=== PATIENT | male | born 1980 | race African-American/Black ===

== ENCOUNTER 2016-11-11 20:33 | Emergency (ER) | payer SELFPAY ==
[~2016-11-11] VITALS: Ht 185.4 cm; Wt 88.3 kg
[2016-11-11] MEDS ORDERED: BACTROBAN OINTM22 GM TP (21:17)
[2016-11-11] MEDS ORDERED: KENALOG,ARISTOC80 G1 TP (21:17)
[2016-11-11 21:57] VITALS: BP 124/79
== END 2016-11-11 21:59 | disposition home or self-care (01) ==
LOC: EME 20:33
DX: S80.812A Abrasion, left lower leg, initial encounter (principal)
CPT/HCPCS: 99281; 99283